=== PATIENT | female | born 1955 | race African-American/Black ===

== ENCOUNTER 2016-04-23 07:12 | Emergency (ER) | payer OTHER ==
[2016-04-23 07:53] VITALS: TEMP 97.9; BMI 22.4
--- NOTE | 2016-04-23 07:56 | PDOC ---
*Physical Exam - Vital Signs Last Vital Signs Temp Pulse Resp BP Pulse Ox 97.9 F 99 H 19 160/93 100 04/23/16 07:28 04/23/16 07:28 04/23/16 07:28 04/23/16 07:28 04/23/16 07:28 - Physical Exam Comments: 04/23/16 07:56 Pt seen by the Advanced Practice Provider under my direct supervision Pt interviewed and examined Ancillary studies reviewed I agree with plan as outlined by the Advanced Practice Provider ED Treatment Course - LABORATORY CBC & Chemistry Diagram: 04/23/16 08:40 04/23/16 08:40 *DC/Admit/Observation/Transfer Diagnosis at time of Disposition: Nausea & vomiting, Abdominal pain - Discharge Dispostion Disposition: HOME Condition at time of disposition: Improved - Prescriptions Prescriptions: Ondansetron HCl [Zofran] 4 mg PO TID PRN #12 tablet PRN Reason: Nausea And/Or Vomiting - Referrals Referrals: Mitch Nayak MD [Primary Care Provider] - - Patient Instructions Printed Discharge Instructions: DI for Nausea -- Adult, DI for Vomiting -- Adult Additional Instructions: Is unclear if you have a stomach virus versus food poisoning but at this time I am sending her home with recommendations to continue a bland diet for the next 48 hours and advance as tolerated. Stay well-hydrated. I also recommend taking Zofran as needed for nausea and return to ED if your symptoms worsen
[2016-04-23] MEDS ORDERED: PANTOPRAZOLE SODIUM 40 MG in SODIUM CHLORIDE 100 ML IVPB ONE (08:38)
[2016-04-23] MEDS ORDERED: ONDANSETRON 4 MG/2 ML VIAL IVPUSH ONE (08:38)
[2016-04-23] MEDS ORDERED: SODIUM CHLORIDE 1,000 ML IV STA ×2 (08:38→09:25)
[2016-04-23] MEDS ORDERED: KETOROLAC TROMETHAMINE 30 MG/1 ML VIAL IVPUSH ONE (08:38)
[2016-04-23 08:50] LABS: BASOPHIL 0.5 % (0-2.0); MCH 28.7 pg (25.7-33.7); MCHC 32.3 g/dl (32.0-36.0); MEAN CELL VOLUME 89.1 fl (80-96); NEUTROPHILS 92.3 % (42.8-82.8); PLATELET COUNT 230 K/MM3 (134-434); RDW 15.9 % (11.6-15.6); WHITE BLOOD COUNT 8.2 K/mm3 (4.0-10.0)
[2016-04-23 09:16] LABS: ALBUMIN 3.9 g/dl (3.4-5.0); ANION GAP 13 (8-16); CALCIUM 9.3 mg/dL (8.5-10.1); CO2 24 mmol/L (21-32); CREATININE 1.1 mg/dL (0.55-1.02); SGPT/ALT 25 U/L (12-78); TOT PROT 7.2 g/dl (6.4-8.2)
[2016-04-23 09:17] LABS: ALK PHOS 114 U/L (45-117)
[2016-04-23 09:24] LABS: GLUCOSE,RANDOM 441 mg/dL (74-106); MAGNESIUM 1.9 mg/dL (1.8-2.4); SGOT/AST 25 U/L (15-37)
--- NOTE | 2016-04-23 10:06 | PDOC ---
History of Present Illness - General Chief Complaint: Nausea/Vomiting Stated Complaint: WEAKNESS Time Seen by Provider: 04/23/16 07:51 History Source: Patient Exam Limitations: No Limitations - History of Present Illness Travel History: No Initial Comments: 04/23/16 09:17 60-year-old female presents the ED with complaints of generalized abdominal cramping associated with nausea vomiting chills, and generalized fatigue since last night. Patient states had sausage taken cheese at [facility] and an hour later at around 9 PM her symptoms began. Patient denies recent travel, recent illness, recent change in medication but does state is a diabetic and did not take her in sling this morning. Patient denies history of gastritis, GI disorders, dysuria, diarrhea shortness of breath or chest pain. Timing/Duration: reports: constant Quality: reports: moderate, cramping Abdominal Pain Onset Location: reports: generalized abdomen Pain Radiation: reports: no radiation Activities at Onset: reports: none Aggravating Factors: improves with: None Alleviating Factors: improves with: Vomiting Past History - Past Medical History Allergies/Adverse Reactions: Allergies Allergy/AdvReac Type Severity Reaction Status Date / Time diphenhydramine HCl AdvReac Mild "SHAKES" Verified 04/23/16 07:27 [From Tylenol PM] acetaminophen AdvReac "SHAKES" Verified 04/23/16 07:27 [From Tylenol PM] Home Medications: Ambulatory Orders Aspirin [ASA -] 81 mg PO DAILY #30 tab.chew 09/22/13 Furosemide [Lasix -] 20 mg PO DAILY #30 tablet 09/22/13 Ibuprofen [Motrin -] 400 mg PO BID #60 tablet 09/22/13 Docusate Sodium [Colace -] 100 mg PO DAILY PRN 11/16/13 Insulin (Levemir) [Levemir Flexpen -] 20 units SQ DAILY 11/16/13 Insulin Aspart [Novolog Flexpen] 0 unit SQ TID PRN 11/16/13 Iron 325 mg PO DAILY 11/16/13 Rosuvastatin Calcium [Crestor] 10 mg PO DAILY 11/16/13 Pantoprazole Sodium [Protonix -] 40 mg PO DAILY #30 tablet.ec 11/17/13 Prednisone [Deltasone -] 20 mg PO UTDICT #18 tablet 11/17/13 Amoxicillin/Potassium Clav [Augmentin 875-125 Tablet] 1 each PO BID #14 tablet 11/28/14 Fluticasone Prop 0.05% Nasal [Flonase -] 1 - 2 spray NS BID #1 spray.pump Unobtainable 04/23/16 Cardiac Disorders: Yes Diabetes: Yes HTN: Yes Hypercholesterolemia: Yes - Surgical History Abdominal Surgery: Yes Cardiac Surgery: Yes (triple bypass 08/30/13) - Family Disease History Family Disease History: Diabetes: Mother, Heart Disease: Father - Psycho/Social/Smoking Cessation Hx Anxiety: No Suicidal Ideation: No Smoking History: Former smoker Have you smoked in the past 12 months: No If you are a former smoker, when did you quit?: 1993 Information on smoking cessation initiated: No Hx Alcohol Use: No Drug/Substance Use Hx: No Substance Use Type: None Hx Substance Use Treatment: No Patient Lives Alone: No Lives with/in: spouse/SO Review of Systems - Review of Systems Able to Perform ROS?: Yes Constitutional: Yes: Weakness HEENTM: No: Symptoms Reported Respiratory: No: Symptoms reported Cardiac (ROS): No: Symptoms Reported ABD/GI: Yes: Nausea, Vomiting, Abdominal cramping : No: Symptoms Reported Musculoskeletal: No: Symptoms Reported Integumentary: No: Symptoms Reported Neurological: No: Symptoms reported Endocrine: No: Symptoms Reported Hematologic/Lymphatic: No: Symptoms Reported *Physical Exam - Vital Signs Last Vital Signs Temp Pulse Resp BP Pulse Ox 97.9 F 99 H 19 120/70 100 04/23/16 07:28 04/23/16 07:28 04/23/16 07:28 04/23/16 09:35 04/23/16 07:28 - Physical Exam General Appearance: Yes: Nourished, Appropriately Dressed. No: Apparent Distress HEENT: positive: EOMI, ANILA, Pharynx Normal (dry). negative: Pale Conjunctivae Neck: positive: Supple Respiratory/Chest: positive: Lungs Clear, Normal Breath Sounds. negative: Respiratory Distress, Accessory Muscle Use Cardiovascular: positive: Regular Rhythm, Regular Rate. negative: Murmur Gastrointestinal/Abdominal: positive: Soft, Tenderness (epigastric and bilateral lower quadrants) Extremity: positive: Normal Capillary Refill. negative: Pedal Edema Integumentary: positive: Normal Color, Warm, Moist Neurologic: positive: Motor Strength 5/5 (ambulatory) Heart Score/ECG Review - History History: Slightly suspicious - Electrocardiogram EKG: Normal - Age Age: 45-65 - Risk Factors Risk Factors Heart Score: Yes Hx Diabetes, Yes Positive family hx of cardiac disease Based on the list above the patient has:: 1-2 risk factors - Troponin Troponin: </= normal limit - Score Heart Score - Total: 2 - ECG Intrepretation Rhythm: Regular Rhythm (lvh rate 101.) ED Treatment Course - LABORATORY CBC & Chemistry Diagram: 04/23/16 08:40 04/23/16 08:40 - ADDITIONAL ORDERS Additional order review: Laboratory Results 04/23/16 08:40 Sodium 137 Potassium 5.0 Chloride 100 Carbon Dioxide 24 Anion Gap 13 BUN 28 H Creatinine 1.1 H D Creat Clearance w eGFR 50.67 Random Glucose 441 H* Calcium 9.3 Magnesium 1.9 Total Bilirubin 1.0 D AST 25 D ALT 25 D Alkaline Phosphatase 114 Total Protein 7.2 Albumin 3.9 Lipase 79 04/23/16 08:40 RBC 4.25 MCV 89.1 MCHC 32.3 RDW 15.9 H MPV 11.0 Neutrophils % 92.3 H D Lymphocytes % 5.2 L D Monocytes % 2.0 L Eosinophils % 0.0 D Basophils % 0.5 - Medications Given in the ED: ED Medications Discontinued Medications Generic Name Dose Route Start Last Admin Trade Name Freq PRN Reason Stop Dose Admin Pantoprazole Sodium 40 mg/ 100 mls @ 200 mls/hr 04/23/16 08:38 04/23/16 09:02 Sodium Chloride IVPB 04/23/16 09:07 200 mls/hr ONCE ONE Administration Sodium Chloride 1,000 mls @ 1,000 mls/hr 04/23/16 08:38 04/23/16 08:47 Normal Saline - IV 04/23/16 09:37 1,000 mls/hr ASDIR STA Administration Ketorolac Tromethamine 30 mg 04/23/16 08:38 04/23/16 09:00 Toradol Injection - IVPUSH 04/23/16 08:39 30 mg ONCE ONE Administration Ondansetron HCl 4 mg 04/23/16 08:38 04/23/16 09:03 Zofran Injection IVPUSH 04/23/16 08:39 4 mg ONCE ONE Administration Medical Decision Making - Medical Decision Making 04/23/16 09:22 Patient was combative nausea vomiting, generalized fatigue, and abdominal cramping one hour after eating sausage and cheese sandwich at [facility]. Patient has no other complaints presently including diarrhea or fever. Patient with possible gastroenteritis versus poisoning versus cholecystitis. Patient ordered for labs including lipase, magnesium acetone since she is a diabetic urine, IV fluids, antiemetics, PPI, and analgesic 04/23/16 10:23 Laboratory Tests 04/23/16 04/23/16 08:40 08:40 WBC 8.2 Hgb 12.2 Hct 37.9 Plt Count 230 Neutrophils % 92.3 H D Sodium 137 Potassium 5.0 Chloride 100 Carbon Dioxide 24 Anion Gap 13 BUN 28 H Creatinine 1.1 H D Random Glucose 441 H* Magnesium 1.9 Lipase 79 Due to patient's elevated glucose patient be given second bag of fluid. Acetone pending. Patient will have a repeat BGM after second bag of fluid and decide how much insulin patient should receive since she did not take her morning dose. 04/23/16 10:43 Repeat BGM was 349. Patient requesting to take her own Levamir 40 units which I have stated it is fine. Will check a BGM in one hour. 04/23/16 11:49 Although patient states the nausea subsided and she is feeling more energy after receiving the above medication she also states did not take her baby aspirin this morning and is having mild epigastric pain radiating to her mid sternal region. Patient due to her cardiac history we'll have a cardiac profile and EKG done. Patient denies left-sided chest pain, shortness of breath, palpitations, or diaphoresis presently 04/23/16 13:01 Laboratory Tests 04/23/16 08:40 Creatine Kinase 126 Troponin I < 0.02 Patient ate a lunch tray without difficulty will discharge patient home with Vivi and told to follow-up with her PCP *DC/Admit/Observation/Transfer Diagnosis at time of Disposition: Nausea and vomiting Qualifiers: Vomiting type: bilious vomiting Qualified Code(s): R11.14 - Bilious vomiting Abdominal pain Qualifiers: Abdominal location: lower abdomen, unspecified Qualified Code(s): R10.30 - Lower abdominal pain, unspecified - Discharge Dispostion Disposition: HOME Condition at time of disposition: Improved - Referrals Referrals: Mitch Nayak MD [Primary Care Provider] - - Patient Instructions Printed Discharge Instructions: DI for Nausea -- Adult, DI for Vomiting -- Adult Additional Instructions: Is unclear if you have a stomach virus versus food poisoning but at this time I am sending her home with recommendations to continue a bland diet for the next 48 hours and advance as tolerated. Stay well-hydrated. I also recommend taking Zofran as needed for nausea and return to ED if your symptoms worsen
[2016-04-23 11:34] LABS: URINE APPEARANCE CLEAR; URINE BILIRUBIN NEGATIVE (NEGATIVE); URINE COLOR COLORLESS; URINE GLUCOSE (UA) 3+ (NEGATIVE); URINE KETONE 2+ (NEGATIVE); URINE LEUK ESTERASE NEGATIVE (NEGATIVE); URINE NITRITE NEGATIVE (NEGATIVE); URINE UROBILINOGEN NEGATIVE E.U./dl (0.2-1.0)
[2016-04-23 11:37] LABS: URINE BLOOD 2+ (NEGATIVE); URINE PROTEIN 2+ (NEGATIVE)
[2016-04-23 11:40] LABS: URINE MUCUS RARE; URINE RBC 3 /hpf (0-3); URINE WBC <1 /hpf (3-5)
[2016-04-23] MEDS ORDERED: ASPIRIN 81 MG CHEWABLE TABLETS PO ONE (11:48)
[2016-04-23 12:52] LABS: TROPONIN I < 0.02 ng/ml (0.00-0.05)
[2016-04-23 12:58] VITALS: BP 145/88; PULSE 88
--- NOTE | 2016-04-23 15:04 | EKG ---
Test Reason : Blood Pressure : / mmHG Vent. Rate : 103 BPM Atrial Rate : 103 BPM P-R Int : 174 ms QRS Dur : 076 ms QT Int : 362 ms P-R-T Axes : 067 -04 -12 degrees QTc Int : 474 ms POOR DATA QUALITY, INTERPRETATION MAY BE ADVERSELY AFFECTED SINUS TACHYCARDIA MINIMAL VOLTAGE CRITERIA FOR LVH, MAY BE NORMAL VARIANT CANNOT RULE OUT ANTERIOR INFARCT (CITED ON OR BEFORE 28-NOV-2014) ABNORMAL ECG WHEN COMPARED WITH ECG OF 28-NOV-2014 10:10, NONSPECIFIC T WAVE ABNORMALITY NOW EVIDENT IN INFERIOR LEADS Confirmed by FER GARIBAY MD ([id number]) on 04/23/2016 3:03:39 PM Referred By: Confirmed By:FER GARIBAY MD
== END 2016-04-23 13:39 | disposition home or self-care (01) ==
LOC: JER 07:12
PROC: 3E0337Z Introduction of Electrolytic and Water Balance Substance into Peripheral Vein, Percutaneous Approach (ICD-10-PCS; principal; 2016-04-23)
PROC: 3E033GC Introduction of Other Therapeutic Substance into Peripheral Vein, Percutaneous Approach (ICD-10-PCS; 2016-04-23)
PROC: 3E0333Z Introduction of Anti-inflammatory into Peripheral Vein, Percutaneous Approach (ICD-10-PCS; 2016-04-23)
DX: R10.84 Generalized abdominal pain (principal); I10 Essential (primary) hypertension; E11.9 Type 2 diabetes mellitus without complications; Z79.4 Long term (current) use of insulin; E78.00 Pure hypercholesterolemia, unspecified
CPT/HCPCS: 36415; 80053; 81003; 81015; 82009; 82550; 83690; 83735; 84484; 85025; 93005; 93010; 99284-25

== ENCOUNTER 2016-11-12 16:19 | Emergency (ER) | payer OTHER ==
[2016-11-12 16:43] VITALS: BP 151/79; PULSE 69; TEMP 98.2; BMI 20.6
[2016-11-12] MEDS ORDERED: SODIUM CHLORIDE 1,000 ML IV STA (17:32)
--- NOTE | 2016-11-12 17:39 | PDOC ---
History of Present Illness - General Chief Complaint: Blood Sugar Problem Stated Complaint: PCP SENT Time Seen by Provider: 11/12/16 17:12 History Source: Patient - History of Present Illness Timing/Duration: other (this am) Associated Symptoms: reports: malaise. denies: chest pain, cough, diaphoresis, fever/chills, headaches, nausea/vomiting, shortness of breath Past History - Past Medical History Allergies/Adverse Reactions: Allergies Allergy/AdvReac Type Severity Reaction Status Date / Time diphenhydramine HCl AdvReac Mild "SHAKES" Verified 04/23/16 07:27 [From Tylenol PM] acetaminophen AdvReac "SHAKES" Verified 04/23/16 07:27 [From Tylenol PM] Home Medications: Ambulatory Orders Aspirin [ASA -] 81 mg PO DAILY #30 tab.chew 09/22/13 Furosemide [Lasix -] 20 mg PO DAILY #30 tablet 09/22/13 Insulin (Levemir) [Levemir Flexpen -] 30 units SQ DAILY 11/16/13 Iron 325 mg PO DAILY 11/16/13 Cardiac Disorders: Yes Diabetes: Yes HTN: Yes Hypercholesterolemia: Yes - Surgical History Abdominal Surgery: Yes Cardiac Surgery: Yes (triple bypass 08/30/13) - Family Disease History Family Disease History: Diabetes: Mother, Heart Disease: Father - Immunization History Immunization Up to Date: Yes - Suicide/Smoking/Psychosocial Hx Anxiety: No Suicidal Ideation: No Smoking History: Never smoked Have you smoked in the past 12 months: No If you are a former smoker, when did you quit?: 20YEARS Information on smoking cessation initiated: No Hx Alcohol Use: No Drug/Substance Use Hx: No Substance Use Type: None Hx Substance Use Treatment: No Review of Systems - Review of Systems Constitutional: Yes: Malaise. No: Chills, Fever Respiratory: No: Cough, Shortness of Breath Cardiac (ROS): No: Chest Pain ABD/GI: No: Diarrhea, Nausea, Vomiting, Abdominal cramping Neurological: No: Headache, Dizziness *Physical Exam - Vital Signs Last Vital Signs Temp Pulse Resp BP Pulse Ox 98.2 F 69 16 151/79 100 11/12/16 16:39 11/12/16 16:39 11/12/16 16:39 11/12/16 16:39 11/12/16 16:39 - Physical Exam General Appearance: Yes: Appropriately Dressed. No: Apparent Distress HEENT: positive: Normal Voice, Other (moist MM) Neck: positive: Supple Respiratory/Chest: positive: Lungs Clear, Normal Breath Sounds. negative: Respiratory Distress Cardiovascular: positive: Regular Rate, S1, S2 Gastrointestinal/Abdominal: positive: Soft. negative: Tender Musculoskeletal: negative: CVA Tenderness Extremity: positive: Normal Inspection Integumentary: positive: Dry, Warm Neurologic: positive: Fully Oriented, Alert, Normal Mood/Affect ED Treatment Course - LABORATORY CBC & Chemistry Diagram: 11/12/16 18:23 11/12/16 18:23 - RADIOLOGY Radiology Studies Ordered: Category Date Time Status CHEST X-RAY PORTABLE* [RAD] Stat Radiology 11/12/16 17:36 Ordered Medical Decision Making - Medical Decision Making 11/12/16 17:38 61-year-old female, history of hypertension, insulin-dependent diabetes, CABG, here with malaise in the setting of hyperglycemia. Reports that she started not feeling well today, but denies any focal symptoms. Went to see her PMD, Dr. Sultana, and sent to ER for fingerstick in the 500s. Patient denies any headache, dizziness, cough, chest pain, shortness of breath, abdominal pain, change in bowel movements, dysuria, nausea, vomiting, fever or chills. No history of DKA See exam Malaise in setting of hyperglycemia Stable w/ unremarkable exam R/o DKA -IVF -labs -anticipate admission 11/12/16 17:42 11/12/16 18:40 Signed out to JORGE Vincent pending labs *DC/Admit/Observation/Transfer Diagnosis at time of Disposition: Hyperglycemia, Diabetes - Discharge Dispostion Disposition: HOME - Referrals Referrals: Gonsalo Dubose MD [Staff Physician] - Mitch Nayak MD [Primary Care Provider] - - Patient Instructions Printed Discharge Instructions: DI for Hyperglycemia -- Adult Additional Instructions: drink plenty of fluids. follow up with your doctor as soon as possible. check blood sugar premeals and at night time
--- NOTE | 2016-11-12 18:37 | PDOC ---
*Physical Exam - Vital Signs Last Vital Signs Temp Pulse Resp BP Pulse Ox 98.2 F 69 16 151/79 100 11/12/16 16:39 11/12/16 16:39 11/12/16 16:39 11/12/16 16:39 11/12/16 16:39 Heart Score/ECG Review #1 ECG reviewed & interpreted by me at: 19:00 General ECG Interpretation: Sinus Rhythm, Normal Rate (69), Normal Intervals ( qtc 430, no peaked T waves), No acute ischemic changes ED Treatment Course - LABORATORY CBC & Chemistry Diagram: 11/12/16 18:23 11/12/16 18:23 - Medications Given in the ED: ED Medications Discontinued Medications Generic Name Dose Route Start Last Admin Trade Name Freq PRN Reason Stop Dose Admin Sodium Chloride 1,000 mls @ 1,000 mls/hr 11/12/16 17:32 11/12/16 17:41 Normal Saline - IV 11/12/16 18:31 1,000 mls/hr ASDIR STA Administration Medical Decision Making - Medical Decision Making 11/12/16 18:36 Patient seen and evaluated with the nurse practitioner. I agree with the overall evaluation, assessment, and management with the following summary of visit: 61-year-old female with history of insulin-dependent diabetes sent from her primary physician's office for further evaluation of hyperglycemia. Feeling generally unwell without specific complaints. Agree with management as outlined, rule out DKA or infectious etiology. IV fluids, reassess and dispo accordingly 11/12/16 20:26 glucose 300s without AG elevation or acetone. IVF hydration, UA clear reassess, dispo *DC/Admit/Observation/Transfer Diagnosis at time of Disposition: Hyperglycemia - Referrals Referrals: Mitch Nayak MD [Primary Care Provider] -
[2016-11-12 18:39] LABS: EOSINOPHIL 1.3 % (0-4.5); MCH 30.2 pg (25.7-33.7); MCHC 33.2 g/dl (32.0-36.0); MEAN CELL VOLUME 90.9 fl (80-96); MEAN PLT VOLUME 10.4 fl (7.5-11.1); NEUTROPHILS 61.1 % (42.8-82.8); PLATELET COUNT 294 K/MM3 (134-434); RDW 16.2 % (11.6-15.6); WHITE BLOOD COUNT 6.1 K/mm3 (4.0-10.0)
[2016-11-12 19:15] LABS: ALBUMIN 3.9 g/dl (3.4-5.0); ANION GAP 6 (8-16); BILIRUBIN,TOTAL 0.7 mg/dL (0.2-1.0); CALCIUM 9.8 mg/dL (8.5-10.1); CO2 31 mmol/L (21-32); SGOT/AST 8 U/L (15-37); SGPT/ALT 17 U/L (12-78); TOT PROT 7.6 g/dl (6.4-8.2)
--- NOTE | 2016-11-12 19:17 | PDOC ---
*Physical Exam - Vital Signs Last Vital Signs Temp Pulse Resp BP Pulse Ox 98.2 F 69 16 151/79 100 11/12/16 16:39 11/12/16 16:39 11/12/16 16:39 11/12/16 16:39 11/12/16 16:39 - Physical Exam General Appearance: Yes: Appropriately Dressed Respiratory/Chest: positive: Lungs Clear, Normal Breath Sounds Cardiovascular: positive: Regular Rhythm, Regular Rate Gastrointestinal/Abdominal: positive: Normal Bowel Sounds, Soft Extremity: positive: Normal Capillary Refill, Normal Inspection, Normal Range of Motion Neurologic: positive: Fully Oriented, Alert, Normal Mood/Affect ED Treatment Course - LABORATORY CBC & Chemistry Diagram: 11/12/16 18:23 11/12/16 18:23 - ADDITIONAL ORDERS Additional order review: Laboratory Results 11/12/16 11/12/16 18:38 18:23 POC Glucometer [phone] Acetone, Qual Negative L 11/12/16 11/12/16 18:38 18:23 RBC 3.88 MCV 90.9 MCHC 33.2 RDW 16.2 H MPV 10.4 Neutrophils % 61.1 D Lymphocytes % 31.9 D Monocytes % 4.7 D Eosinophils % 1.3 D Basophils % 1.0 POC Glucometer [id number] - Medications Given in the ED: ED Medications Discontinued Medications Generic Name Dose Route Start Last Admin Trade Name Freq PRN Reason Stop Dose Admin Sodium Chloride 1,000 mls @ 1,000 mls/hr 11/12/16 17:32 11/12/16 17:41 Normal Saline - IV 11/12/16 18:31 1,000 mls/hr ASDIR STA Administration Progress Note - Progress Note Progress Note: A: hyperglycemia. P: no signs of DKA. patient is felling better. will discharge and patient referred to outpatient endocrinology. *DC/Admit/Observation/Transfer Diagnosis at time of Disposition: Hyperglycemia Diabetes Qualifiers: Diabetes mellitus type: type 2 Diabetes mellitus complication status: with hyperglycemia Diabetes mellitus detention insulin use: unspecified detention insulin use status Qualified Code(s): E11.65 - Type 2 diabetes mellitus with hyperglycemia - Discharge Dispostion Disposition: HOME - Referrals Referrals: Mitch Nayak MD [Primary Care Provider] - Gonsalo Dubose MD [Staff Physician] - - Patient Instructions Printed Discharge Instructions: DI for Hyperglycemia -- Adult Additional Instructions: drink plenty of fluids. follow up with your doctor as soon as possible. check blood sugar premeals and at night time - Post Discharge Activity
[2016-11-12 19:20] LABS: URINE APPEARANCE CLEAR; URINE BILIRUBIN NEGATIVE (NEGATIVE); URINE BLOOD 1+ (NEGATIVE); URINE COLOR COLORLESS; URINE GLUCOSE (UA) 3+ (NEGATIVE); URINE KETONE NEGATIVE (NEGATIVE); URINE LEUK ESTERASE NEGATIVE (NEGATIVE); URINE NITRITE NEGATIVE (NEGATIVE); URINE PROTEIN NEGATIVE (NEGATIVE); URINE UROBILINOGEN NEGATIVE mg/dL (0.2-1.0)
[2016-11-12 19:20] LABS: ALK PHOS 115 U/L (45-117); CPK 85 IU/L (26-192); TROPONIN I < 0.02 ng/ml (0.00-0.05)
[2016-11-12 19:55] LABS: GLUCOSE,RANDOM 325 mg/dL (74-106)
[2016-11-12] MEDS ORDERED: SODIUM CHLORIDE 0.9% 1000 ML INFUS.BAG IV ONE (20:47)
[2016-11-12 20:50] LABS: URINE BACTERIA RARE /hpf (NONE SEEN); URINE RBC 2 /hpf (0-3); URINE WBC 1 /hpf (3-5)
--- NOTE | 2016-11-13 09:43 | EKG ---
Test Reason : Blood Pressure : / mmHG Vent. Rate : 069 BPM Atrial Rate : 069 BPM P-R Int : 164 ms QRS Dur : 078 ms QT Int : 402 ms P-R-T Axes : 070 -02 022 degrees QTc Int : 430 ms NORMAL SINUS RHYTHM CANNOT RULE OUT ANTERIOR INFARCT (CITED ON OR BEFORE 28-NOV-2014) ABNORMAL ECG Confirmed by JEREMIAH GIBBS MD ([id number]) on 11/13/2016 9:43:16 AM Referred By: Confirmed By:JEREMIAH GIBBS MD
== END 2016-11-12 22:27 | disposition home or self-care (01) ==
LOC: JER 16:19
PROC: 3E0337Z Introduction of Electrolytic and Water Balance Substance into Peripheral Vein, Percutaneous Approach (ICD-10-PCS; principal; 2016-11-12)
DX: E11.65 Type 2 diabetes mellitus with hyperglycemia (principal); Z79.4 Long term (current) use of insulin; I10 Essential (primary) hypertension; E78.00 Pure hypercholesterolemia, unspecified; Z95.1 Presence of aortocoronary bypass graft
CPT/HCPCS: 36415; 71010-TC; 80053; 81003; 81015; 82009; 83690; 84484; 85025; 93005; 93010; 99282-25

== ENCOUNTER 2017-10-30 04:13 | Emergency (ER) | payer SELFPAY ==
--- NOTE | 2017-10-30 04:44 | PDOC ---
Attending Attestation - Resident Resident Name: Sallie Briceno - ED Attending Attestation I have performed the following: I have examined & evaluated the patient, The case was reviewed & discussed with the resident, I agree w/resident's findings & plan
[2017-10-30] MEDS ORDERED: morphine CARPU-JECT 2 MG/1 ML DISP.SYRIN IVPUSH ONE (04:50)
--- NOTE | 2017-10-30 04:55 | PDOC ---
Attending Attestation - HPI HPI: 10/30/17 05:46 The patient is a 62 year old female, with a significant past medical history of DM, HTN, HLD, who presents to the emergency department with, pain to the right hand and wrist. As per patient, yesterday evening she slipped and fell backward hurting her right wrist. She is unaware if she hit her head. She denies any loss of consciousness. She denies recent fevers, chills, headache or dizziness. She denies recent nausea, vomit, diarrhea or constipation. She denies recent dysuria, frequency, urgency or hematuria. She denies recent chest pain or shortness of breath. Allergies: diphenhydramine HCl, acetaminophen Social History: No alcohol, tobacco, or drugs use reported. Past Surgical History: s/p triple bypass 08/30/13 Family History: Cardiac disease PCP: Dr. Mitch Nayak - Physicial Exam PE: 10/30/17 05:46 GENERAL: Awake, alert, and fully oriented, in no acute distress HEAD: No signs of trauma EYES: PERRLA, EOMI, sclera anicteric, conjunctiva clear ENT: Auricles normal inspection, hearing grossly normal, nares patent, oropharynx clear without exudates. Moist mucosa NECK: Normal ROM, supple, no lymphadenopathy, JVD, or masses LUNGS: Breath sounds equal, clear to auscultation bilaterally. No wheezes, and no crackles HEART: Regular rate and rhythm, normal S1 and S2, no murmurs, rubs or gallops ABDOMEN: Soft, nontender, normoactive bowel sounds. No guarding, no rebound. No masses +RIGHT HAND: Minimal right wrist deformity. Pain with movement of the wrist. Able to supinate and pronate. No pain with passive ROM of fingers. NEUROLOGICAL: Cranial nerves II through XII grossly intact. Normal speech, normal gait SKIN: Warm, Dry, normal turgor, no rashes or lesions noted. - Medical Decision Making 10/30/17 05:48 EXAM: XR ELBOW-RIGHT, XR R forearm FINDINGS: Elbow: Frontal and lateral views of the elbow demonstrate no fracture or dislocation. Soft tissues appear normal. Forearm: Frontal and lateral views of the radius and ulna demonstrate no fracture or dislocation. Soft tissues appear normal IMPRESSION: No fracture or dislocation of the right elbow or forearm Read by: Christiano Islas MD 10/30/17 06:43 EXAM: CT HEAD CT WITHOUT CONTRAST HISTORY: Trauma COMPARISON: None. FINDINGS: Brain parenchyma is normal in attenuation with no mass or hematoma. There is no midline shift. Arriaga and white matter differentiation is normal. Ventricles are normal. Sulci and extra-axial CSF spaces are normal. Intracranial vascular structures are normal in attenuation. There is no calvarial fracture. Paranasal sinuses are normally aerated. IMPRESSION: Normal head Read by: Christiano Islas MD <Clau Jacome - Last Filed: 10/30/17 06:43> - Resident Resident Name: Sallie Briceno - ED Attending Attestation I have performed the following: I have examined & evaluated the patient, The case was reviewed & discussed with the resident, I agree w/resident's findings & plan - Medical Decision Making 10/30/17 05:49 Pt has no fractures in the forearm/wrist. She is able to supinate and pronate. She has some deformity of the wrist, and she will be placed in a wrist splint and asked to follow with ortho. 10/30/17 19:[address] normal, as above. <Inez Ceja - Last Filed: 10/30/17 19:40> Attestations - Attestations 10/30/17 05:49 Documentation prepared by Clau Jacome, acting as medical review coordinator for Inez Ceja MD. <Clau Jacome - Last Filed: 10/30/17 06:43>
--- NOTE | 2017-10-30 04:59 | PDOC ---
History of Present Illness - General Stated Complaint: HAND INJURY Time Seen by Provider: 10/30/17 04:34 History Source: Patient - History of Present Illness Initial Comments: 10/30/17 05:12 Pt is a 62yo f with PMH of DM, HTN, HLD presenting to ED with complaints of pain in her R hand and wrist. Pt states around 6pm she was trying to tie her shoe and she fell backward. She thinks she landed on her hand. After the incident she was able to move her wrist but she states that it had gotten even more painful and that she is unable to move it. She thinks she might have hit her head. Did not lose consciousness. She denies chest pain, shortness of breath, abdominal pain, n/v/d, fevers. PMH: see hpi PSH: hysterctomy, CABG 2013 Meds: see med rec Allergies: tylenol, benadryl social: denies Past History - Past Medical History Allergies/Adverse Reactions: Allergies Allergy/AdvReac Type Severity Reaction Status Date / Time diphenhydramine HCl AdvReac Mild "SHAKES" Verified 10/30/17 05:34 [From Tylenol PM] acetaminophen AdvReac "SHAKES" Verified 10/30/17 05:34 [From Tylenol PM] Home Medications: Ambulatory Orders Aspirin [ASA -] 81 mg PO DAILY #30 tab.chew 09/22/13 Furosemide [Lasix -] 20 mg PO DAILY #30 tablet 09/22/13 Insulin (Levemir) [Levemir Flexpen -] 30 units SQ DAILY 11/16/13 Iron 325 mg PO DAILY 11/16/13 Cardiac Disorders: Yes Diabetes: Yes HTN: Yes Hypercholesterolemia: Yes - Surgical History Abdominal Surgery: Yes Cardiac Surgery: Yes (triple bypass 08/30/13) - Family Disease History Family Disease History: Diabetes: Mother, Heart Disease: Father - Immunization History Immunization Up to Date: Yes - Suicide/Smoking/Psychosocial Hx Smoking History: Never smoked Have you smoked in the past 12 months: No If you are a former smoker, when did you quit?: 20YEARS Hx Alcohol Use: No Drug/Substance Use Hx: No Substance Use Type: None Hx Substance Use Treatment: No *Physical Exam - Physical Exam Vascular Pulses: Dorsalis-Pedis (R): 2+, Doralis-Pedis (L): 2+ Comments:: 10/30/17 04:59 Radial pulses 2+ bilaterally Musculoskeletal: positive: Decreased Range of Motion (R arm, wrist and fingers) , Other (R distal forearm and wrist swollen compared to L. Mass overlying dorsal aspect of hand near thumb. Tender to palpation along forearm, wrist and palm. R elbow tenderness. ) Extremity: positive: Normal Capillary Refill. negative: Coldness, Cyanosis Integumentary: positive: Normal Color, Dry, Warm, Swelling (R wrist swelling. ) . 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 negative: Motor Strength 5/5, Numbness, Sensory Deficit (No sensory deficit in all aspects of R hand/wrist/forearm. ) ED Treatment Course - RADIOLOGY Radiology Studies Ordered: Category Date Time Status HEAD CT WITHOUT CONTRAST [CT] Stat CT Scan 10/30/17 04:49 Ordered ELBOW-RIGHT [RAD] Stat Radiology 10/30/17 04:50 Ordered FOREARM- RIGHT [RAD] Stat Radiology 10/30/17 04:50 Ordered WRIST W/HAND-RIGHT* [RAD] Stat Radiology 10/30/17 04:50 Ordered Medical Decision Making - Medical Decision Making 10/30/17 05:44 Pt is a 62yo f with PMH of DM, HTN, HLD presenting to ED with complaints of pain in her R hand and wrist. Pt states around 6pm she was trying to tie her shoe and she fell backward. Pt lives alone, low suspicion for domestic violence. Wrist is swollen and tender. Will order xray. Ct head ordered bc pt cannot recall if she hit her head or not. Pt allergic to tylenol. given 2mg morphine Will do ortho consult. 10/30/17 06:00 Xray negative for fractures. Awaiting CT results. Pt still in pain. ordered 30mg toradol. Pt placed in wrist splint 10/30/17 06:47 CT head negative. Hemodynamically stable, no fx. pt can be d/c home. Will give information for ortho f/u. *DC/Admit/Observation/Transfer Diagnosis at time of Disposition: Right wrist sprain Qualifiers: Encounter type: initial encounter Qualified Code(s): S63.501A - Unspecified sprain of right wrist, initial encounter - Discharge Dispostion Disposition: HOME Condition at time of disposition: Stable Decision to Admit order: No - Referrals Referrals: Mitch Nayak MD [Primary Care Provider] - - Patient Instructions Additional Instructions: You were seen here today because you injured your wrist. Xray of your wrist and forearm did not show any fractures. We placed you in a wrist splint. Please follow up with an orthopedist: within the next few days. You can take NSAIDS such as motrin for pain. Please come back to the ED if: pain gets worse, your fingers/hand feel numb, your fingers turn pale, or if any new concerning symptom develops. Thank you - Post Discharge Activity Forms/Work/School Notes: Back to Work
[2017-10-30] MEDS ORDERED: morphine SULFATE 4 MG/ML VIAL ONE (05:27)
[2017-10-30 05:33] VITALS: TEMP 98.4; BMI 21.9
[2017-10-30] MEDS ORDERED: morphine CARPU-JECT 2 MG/1 ML DISP.SYRIN IM ONE (05:34)
[2017-10-30] MEDS ORDERED: KETOROLAC TROMETHAMINE 30 MG/1 ML VIAL IM ONE (05:59)
[2017-10-30] MEDS ORDERED: KETOROLAC TROMETHAMINE 30 MG/1 ML VIAL ONE (06:25)
[2017-10-30 07:41] VITALS: BP 150/81; PULSE 81
== END 2017-10-30 07:40 | disposition home or self-care (01) ==
LOC: JER 04:13
PROC: 3E0233Z Introduction of Anti-inflammatory into Muscle, Percutaneous Approach (ICD-10-PCS; principal; 2017-10-30)
PROC: 3E023NZ Introduction of Analgesics, Hypnotics, Sedatives into Muscle, Percutaneous Approach (ICD-10-PCS; 2017-10-30)
PROC: 2W3CX1Z Immobilization of Right Lower Arm using Splint (ICD-10-PCS; 2017-10-30)
DX: S63.501A Unspecified sprain of right wrist, initial encounter (principal); W18.39XA Other fall on same level, initial encounter; Y93.89 Activity, other specified; Y92.018 Other place in single-family (private) house as the place of occurrence of the external cause; Y99.8 Other external cause status; I25.10 Atherosclerotic heart disease of native coronary artery without angina pectoris; Z95.1 Presence of aortocoronary bypass graft; I10 Essential (primary) hypertension; E11.9 Type 2 diabetes mellitus without complications; Z79.4 Long term (current) use of insulin; E78.00 Pure hypercholesterolemia, unspecified
CPT/HCPCS: 70450-TC; 73070-TC-RT-FY; 73090-TC-RT-FY; 73110-TC-RT-FY; 73130-TC-RT-FY; 99282-25

== ENCOUNTER 2021-08-15 16:08 | Emergency (ER) | payer MEDICARE, OTHER ==
[2021-08-15 16:44] VITALS: BP 149/60; PULSE 68; TEMP 98.1; BMI 19.2
[2021-08-15] MEDS ORDERED: LACTATED RINGERS SOLUTION 1000 ML INFUS.BAG IV ONE (17:02)
[2021-08-15 18:29] LABS: VENOUS BASE EXCESS 4.3 mmol/L (-2-2); VENOUS O2 SATURATION 28.2 % (70-80); VENOUS PCO2 54.4 mmHg (38-52); VENOUS PH 7.369 (7.310-7.410)
[2021-08-15 18:30] LABS: BASO % 1.1 % (0-2.0); EOS % 4.4 % (0-4.5); HEMATOCRIT 32.9 % (32.4-45.2); HEMOGLOBIN 10.7 GM/dL (10.7-15.3); LYMPH % 19.2 % (8-40); MCH 27.5 pg (25.7-33.7); MCHC 32.4 g/dl (32.0-36.0); MEAN CELL VOLUME 85.1 fl (80-96); MEAN PLT VOLUME 9.6 fl (7.5-11.1); MONO % 8.7 % (3.8-10.2); NEUT % 66.6 % (42.8-82.8); PLATELET COUNT 199 10^3/uL (134-434); RBC 3.87 M/mm3 (3.60-5.2); RDW 19.8 % (11.6-15.6); WHITE BLOOD COUNT 5.9 K/mm3 (4.0-10.0)
[2021-08-15 18:38] LABS: INR 1.09 (0.83-1.09); PROTHROMBIN TIME (PATIENT) 12.5 SEC (9.7-13.0)
[2021-08-15 18:41] LABS: ACTIVATED PTT 33.1 SECONDS (25.2-36.5)
[2021-08-15 18:53] LABS: ALBUMIN 3.6 g/dl (3.4-5.0); BLOOD UREA NITROGEN 16.4 mg/dL (7-18)
[2021-08-15 18:56] LABS: CREATININE 2.9 mg/dL (0.55-1.3)
[2021-08-15 18:57] LABS: BILIRUBIN,TOTAL 0.5 mg/dL (0.2-1)
== END 2021-08-15 20:17 | disposition home or self-care (01) ==
LOC: JER 16:08
DX: I77.0 Arteriovenous fistula, acquired (principal)
CPT/HCPCS: 36415; 80053; 82010; 82803; 82962; 85025; 85610; 85730; 86850; 86900; 86901; 93005; 93010; 99285-25

== ENCOUNTER 2024-04-19 05:14 | Inpatient (IN) | payer OTHER ==
[2024-04-19] MEDS: MUPIROCIN 2% TOPICAL OINTMENT 22 GM TUBE TP SCH (03:15)
[2024-04-19] MEDS: LIDOCAINE HCL 1%, 10 MG/ML (20ML VIAL) NR ONE ×2 (07:19→08:56)
[2024-04-19] MEDS: ceFAZolin SODIUM 1 GM VIAL IVPB ONE ×3 (07:20→08:51)
[2024-04-19] MEDS: HEPARIN NA (PORCINE) 5,000 UNITS/ML 1ML VIAL SQ ONE ×2 (07:20→08:59)
[2024-04-19] MEDS ORDERED: HEPARIN NA (PORCINE) 5,000 UNITS/ML 1ML VIAL ONE (07:21)
[2024-04-19] MEDS ORDERED: LIDOCAINE HCL 1%, 10 MG/ML (20ML VIAL) ONE (07:21)
[2024-04-19] MEDS ORDERED: MIDAZOLAM HCL 2 MG/2 ML SINGLE DOSE VIAL ONE (08:45)
[2024-04-19] MEDS ORDERED: MIDODRINE HCL 5 MG TABLET PO SCH (10:30)
[2024-04-19] MEDS ORDERED: metoPROLOL SUCCINATE 25 MG TAB.SR.24H (FP) PO SCH (10:30)
[2024-04-19] MEDS ORDERED: SODIUM CHLORIDE 250 ML IV PRN (11:20)
[2024-04-19] MEDS ORDERED: oxyCODONE HCL 5 MG TABLET ONE (11:45)
[2024-04-19] MEDS: oxyCODONE HCL 5 MG TABLET PO PRN (11:50)
[2024-04-19] MEDS: CALCIUM ACETATE 667 MG CAPSULE (FP) PO SCH (15:30)
[2024-04-19 15:43] LABS: HEMATOCRIT 33.8 % (32.4-45.2); HEMOGLOBIN 10.7 GM/dL (10.7-15.3); MCHC 31.7 g/dl (32.0-36.0); MEAN CELL VOLUME 88.3 fl (80-96); MEAN PLT VOLUME 10.7 fl (7.5-11.1); PLATELET COUNT 146 10^3/uL (134-434); RBC 3.83 M/mm3 (3.60-5.2); RDW 17.1 % (11.6-15.6); WHITE BLOOD COUNT 6.9 K/mm3 (4.0-10.0)
[2024-04-19 16:05] LABS: POTASSIUM 4.6 mmol/L (3.5-5.1)
[2024-04-19 16:06] LABS: CALCIUM 8.2 mg/dL (8.5-10.1)
[2024-04-19 16:07] LABS: ALBUMIN 2.9 g/dl (3.4-5.0); BLOOD UREA NITROGEN 57.4 mg/dL (7-18)
[2024-04-19 16:10] LABS: CREATININE 5.5 mg/dL (0.55-1.3); PHOSPHOROUS 6.2 mg/dL (2.5-4.9)
[2024-04-19 16:12] LABS: TOT PROT 6.5 g/dl (6.4-8.2)
[2024-04-19 16:17] LABS: BILIRUBIN,TOTAL 0.4 mg/dL (0.2-1)
[2024-04-19] MEDS: MIDODRINE HCL 5 MG TABLET PO SCH (20:21)
[2024-04-19] MEDS: HEPARIN NA (PORCINE) 5,000 UNITS/ML 1ML VIAL SQ SCH (21:54)
[2024-04-19] MEDS: INSULIN ASPART SLIDING SCALE (NOVOLOG) 1 VIAL SQ SCH (21:54)
[2024-04-19] MEDS: ROSUVASTATIN CA 5 MG TABLET PO SCH (21:55)
[2024-04-19] MEDS ORDERED: INSULIN GLARGINE (LANTUS) 100 UNITS/ML UNITS SQ SCH (22:00)
[2024-04-19] MEDS: traMADol HCL 50 MG TABLET PO SCH (23:14)
[2024-04-19] MEDS: INSULIN (LEVEMIR) 100 UNITS/ML UNITS SQ SCH (23:14)
[2024-04-20] MEDS: ASPIRIN 81 MG CHEWABLE TABLETS PO SCH (10:14)
[2024-04-20] MEDS: metoPROLOL SUCCINATE 25 MG TAB.SR.24H (FP) PO SCH (10:19)
[2024-04-20] MEDS ORDERED: SODIUM CHLORIDE 250 ML IV PRN (18:39)
[2024-04-20] MEDS: INSULIN (LEVEMIR) 100 UNITS/ML UNITS SQ SCH (21:25)
[2024-04-21] MEDS: DEXTROSE 50%-WATER 25 GM/50 ML DISP.SYRIN IVPUSH ONE (05:34)
[2024-04-21] MEDS: metoPROLOL SUCCINATE 25 MG TAB.SR.24H (FP) PO SCH (10:37)
[2024-04-21 11:05] VITALS: BMI 19.3
[2024-04-21 11:58] LABS: HEMATOCRIT 34.9 % (32.4-45.2); HEMOGLOBIN 11.4 GM/dL (10.7-15.3); MCHC 32.7 g/dl (32.0-36.0); MEAN CELL VOLUME 88.6 fl (80-96); MEAN PLT VOLUME 10.8 fl (7.5-11.1); PLATELET COUNT 124 10^3/uL (134-434); RBC 3.95 M/mm3 (3.60-5.2); RDW 17.1 % (11.6-15.6); WHITE BLOOD COUNT 7.2 K/mm3 (4.0-10.0)
[2024-04-21 11:59] LABS: INR 1.15 (0.83-1.09); PROTHROMBIN TIME (PATIENT) 12.5 SEC (9.7-13.0)
[2024-04-21] MEDS: VITAMIN B COMP W-C 1 EA TABLET (NEPHRO-VITE) PO SCH (12:15)
[2024-04-21 12:23] LABS: POTASSIUM 4.2 mmol/L (3.5-5.1)
[2024-04-21 12:27] LABS: BLOOD UREA NITROGEN 34.6 mg/dL (7-18); CALCIUM 9.1 mg/dL (8.5-10.1)
[2024-04-21 12:31] LABS: CREATININE 4.8 mg/dL (0.55-1.3)
[2024-04-21] MEDS: INSULIN (LEVEMIR) 100 UNITS/ML UNITS SQ SCH (22:44)
[2024-04-22] MEDS: DEXTROSE 50%-WATER 25 GM/50 ML DISP.SYRIN IVPUSH ONE (05:28)
[2024-04-22 10:16] LABS: CALCIUM 9.2 mg/dL (8.5-10.1)
[2024-04-22 10:17] LABS: BLOOD UREA NITROGEN 20.5 mg/dL (7-18)
[2024-04-22 10:20] LABS: CREATININE 3.7 mg/dL (0.55-1.3)
[2024-04-23 10:05] LABS: BASO % 1.8 % (0-2.0); EOS % 1.8 % (0-4.5); HEMATOCRIT 35.4 % (32.4-45.2); HEMOGLOBIN 11.1 GM/dL (10.7-15.3); LYMPH % 22.5 % (8-40); MCHC 31.4 g/dl (32.0-36.0); MEAN CELL VOLUME 89.2 fl (80-96); MEAN PLT VOLUME 11.3 fl (7.5-11.1); MONO % 10.4 % (3.8-10.2); NEUT % 63.5 % (42.8-82.8); PLATELET COUNT 161 10^3/uL (134-434); RBC 3.97 M/mm3 (3.60-5.2); RDW 16.9 % (11.6-15.6); WHITE BLOOD COUNT 7.3 K/mm3 (4.0-10.0)
[2024-04-23 10:24] LABS: POTASSIUM 4.6 mmol/L (3.5-5.1)
[2024-04-23 10:29] LABS: BLOOD UREA NITROGEN 29.8 mg/dL (7-18); CALCIUM 9.6 mg/dL (8.5-10.1)
[2024-04-23 10:33] LABS: CREATININE 4.9 mg/dL (0.55-1.3)
[2024-04-23 10:34] LABS: BILIRUBIN,TOTAL 0.5 mg/dL (0.2-1); TOT PROT 6.8 g/dl (6.4-8.2)
[2024-04-23] MEDS ORDERED: DEXTROSE 50%-WATER 25 GM/50 ML DISP.SYRIN ONE (11:00)
[2024-04-23] MEDS: DEXTROSE 50%-WATER 25 GM/50 ML DISP.SYRIN IVPUSH ONE (11:06)
[2024-04-23] MEDS: INSULIN ASPART SLIDING SCALE (NOVOLOG) 1 VIAL SQ SCH (11:07)
[2024-04-23] MEDS: COLLAGENASE CLOSTRIDIUM HIST. 30 GRAMS TUBE TP SCH (12:35)
[2024-04-23] MEDS ORDERED: SODIUM CHLORIDE 250 ML IV PRN (16:36)
[2024-04-23] MEDS: GABAPENTIN 100 MG CAPSULE PO SCH (22:14)
[2024-04-23] MEDS: traMADol HCL 50 MG TABLET PO PRN (22:16)
[2024-04-24] MEDS ORDERED: TRIMETHOBENZAMIDE HCL 200MG/2ML INJ IM PRN (07:54)
[2024-04-24 10:18] LABS: BASO % 0.8 % (0-2.0); EOS % 0.1 % (0-4.5); HEMATOCRIT 41.8 % (32.4-45.2); HEMOGLOBIN 13.3 GM/dL (10.7-15.3); LYMPH % 15.5 % (8-40); MCH 28.7 pg (25.7-33.7); MCHC 31.9 g/dl (32.0-36.0); MEAN CELL VOLUME 89.9 fl (80-96); MEAN PLT VOLUME 11.3 fl (7.5-11.1); MONO % 6.5 % (3.8-10.2); NEUT % 77.1 % (42.8-82.8); PLATELET COUNT 180 10^3/uL (134-434); RBC 4.64 M/mm3 (3.60-5.2); WHITE BLOOD COUNT 8.1 K/mm3 (4.0-10.0)
[2024-04-24 11:17] LABS: POTASSIUM 5.7 mmol/L (3.5-5.1)
[2024-04-24 11:20] LABS: BLOOD UREA NITROGEN 43.7 mg/dL (7-18)
[2024-04-24 11:21] LABS: CALCIUM 10.7 mg/dL (8.5-10.1)
[2024-04-24 11:23] LABS: MAGNESIUM 2.6 mg/dL (1.8-2.4)
[2024-04-24 11:26] LABS: PHOSPHOROUS 5.9 mg/dL (2.5-4.9)
[2024-04-24] MEDS: SENNOSIDES 8.6MG TABLET (FP) PO PRN (22:30)
[2024-04-25 09:14] LABS: HEMATOCRIT 37.4 % (32.4-45.2); HEMOGLOBIN 11.7 GM/dL (10.7-15.3); MCH 28.2 pg (25.7-33.7); MCHC 31.2 g/dl (32.0-36.0); MEAN CELL VOLUME 90.3 fl (80-96); PLATELET COUNT 191 10^3/uL (134-434); RBC 4.15 M/mm3 (3.60-5.2); RDW 16.6 % (11.6-15.6); WHITE BLOOD COUNT 8.2 K/mm3 (4.0-10.0)
[2024-04-25 09:41] LABS: POTASSIUM 4.3 mmol/L (3.5-5.1)
[2024-04-25 09:42] LABS: CALCIUM 9.7 mg/dL (8.5-10.1)
[2024-04-25 09:43] LABS: BLOOD UREA NITROGEN 24.7 mg/dL (7-18); MAGNESIUM 2.4 mg/dL (1.8-2.4)
[2024-04-25 09:46] LABS: PHOSPHOROUS 3.6 mg/dL (2.5-4.9)
[2024-04-25 09:47] LABS: BILIRUBIN,TOTAL 0.6 mg/dL (0.2-1)
[2024-04-25] MEDS: POLYETHYLENE GLYCOL (HEALTHYLAX) 3350 17 GM PACKET PO SCH ×2 (10:16→21:16)
[2024-04-25] MEDS: MIDODRINE HCL 5 MG TABLET PO SCH (10:17)
[2024-04-25] MEDS ORDERED: SODIUM CHLORIDE 250 ML IV PRN (14:07)
[2024-04-25 15:05] VITALS: RESP 18
[2024-04-25 21:15] VITALS: TEMP 97
[2024-04-26 09:53] LABS: INR 1.23 (0.83-1.09); PROTHROMBIN TIME (PATIENT) 13.5 SEC (9.7-13.0)
[2024-04-26 09:57] LABS: HEMATOCRIT 39.9 % (32.4-45.2); HEMOGLOBIN 12.3 GM/dL (10.7-15.3); MCH 28.1 pg (25.7-33.7); MCHC 30.8 g/dl (32.0-36.0); MEAN CELL VOLUME 91.3 fl (80-96); MEAN PLT VOLUME 11.9 fl (7.5-11.1); PLATELET COUNT 192 10^3/uL (134-434); RBC 4.37 M/mm3 (3.60-5.2); RDW 16.4 % (11.6-15.6); WHITE BLOOD COUNT 7.5 K/mm3 (4.0-10.0)
[2024-04-26 10:34] LABS: POTASSIUM 4.6 mmol/L (3.5-5.1)
[2024-04-26] MEDS: PANTOPRAZOLE 40 MG TABLET PO SCH (10:41)
[2024-04-26 10:42] LABS: CALCIUM 10.1 mg/dL (8.5-10.1)
[2024-04-26 10:43] LABS: BLOOD UREA NITROGEN 32.4 mg/dL (7-18)
[2024-04-26 10:46] LABS: BILIRUBIN,TOTAL 0.5 mg/dL (0.2-1)
[2024-04-26 16:00] VITALS: BP 122/70; PULSE 62
== END 2024-04-26 17:37 | disposition home or self-care (01) | DRG 278 ==
LOC: JASU-SURG 05:14 → JASUSAT 05:14 → SUATTDRO 05:14 → J5S 12:50 → JASUSAT 12:51 → J5S 04-20 14:27
PROC: 047M3ZZ Dilation of Right Popliteal Artery, Percutaneous Approach (ICD-10-PCS; principal; 2024-04-21)
PROC: 04FM3ZZ Fragmentation of Right Popliteal Artery, Percutaneous Approach (ICD-10-PCS; 2024-04-21)
DX: E11.51 Type 2 diabetes mellitus with diabetic peripheral angiopathy without gangrene (principal); N18.6 End stage renal disease; I97.711 Intraoperative cardiac arrest during other surgery; L97.418 Non-pressure chronic ulcer of right heel and midfoot with other specified severity; I13.2 Hypertensive heart and chronic kidney disease with heart failure and with stage 5 chronic kidney disease, or end stage renal disease; I50.22 Chronic systolic (congestive) heart failure; K59.00 Constipation, unspecified; R11.2 Nausea with vomiting, unspecified; I25.5 Ischemic cardiomyopathy; E11.621 Type 2 diabetes mellitus with foot ulcer; I70.298 Other atherosclerosis of native arteries of extremities, other extremity; E11.22 Type 2 diabetes mellitus with diabetic chronic kidney disease; E11.649 Type 2 diabetes mellitus with hypoglycemia without coma; I25.10 Atherosclerotic heart disease of native coronary artery without angina pectoris; E78.5 Hyperlipidemia, unspecified; Z95.1 Presence of aortocoronary bypass graft; Y83.8 Other surgical procedures as the cause of abnormal reaction of the patient, or of later complication, without mention of misadventure at the time of the procedure; Z99.2 Dependence on renal dialysis
CPT/HCPCS: 36415; 73718-TC-RT; 74176-TC; 76000-TC-FY; 76705-TC; 80048; 80053; 82962; 82977; 83036; 83735; 84100; 85025; 85027; 85610; 86704; 86708; 86803; 86850; 86900; 86901; 87340; 87517; 93005; 93010; 93306-TC; 93970-TC; 94760; 94761; 97116-GP; 97162-GP; C1760; C1769; J1644